=== PATIENT | male | born 1940 | race Two or more races ===

== ENCOUNTER → 2024-12-13 | Outpatient (CLI) | payer MEDICARE, MEDICAID, SELFPAY ==
--- NOTE | 2024-12-13 10:32 | XR_ITS ---
Exam: elbow bilateral, 6 views Technique: Elbow AP, oblique lateral each elbow total 6 views Exam date and time: December 13, 2024 1112 hours INDICATIONS: Patient fell last month with injury to both elbows, bilateral elbow pain. FINDINGS: Significant bilateral elbow osteoarthritis No acute fracture involving either elbow Large posterior bony olecranon spur is bilaterally IMPRESSION: Significant osteoarthritis No acute fracture.
--- NOTE | 2024-12-13 10:32 | XR_ITS ---
Examination: Bilateral wrists 6 views Technique AP oblique lateral each wrist total 6 views Exam date and time: December 13, 1999 2531 hours INDICATIONS: Patient fell one month ago with injury to both wrists, bilateral wrist pain. FINDINGS: Moderate osteoarthritis radiocarpal intercarpal and carpometacarpal joints bilaterally No acute wrist fracture Soft tissue vascular calcification is noted IMPRESSION: No acute wrist fractures
--- NOTE | 2024-12-13 10:32 | XR_ITS ---
Examination: Bilateral hands, 6 views. Technique: AP, Oblique, Lateral each hand total 6 views Date and time of exam: December 13, 2024 at 1112 hours INDICATIONS: Patient fell one month ago with injury to both hands, bilateral hand pain. FINDINGS: Fingers are curved right hand Old healed fracture right fifth metacarpal Soft tissue vascular calcification Moderate right radiocarpal joint osteoarthritis No acute left hand fracture Bilateral osteoarthritis interphalangeal joints and to a lesser extent metacarpophalangeal joints Impression: No acute fracture involving either hand Osteoarthritis as above Fracture deformity right fifth metacarpal
== END | disposition home or self-care (01) ==
PROVIDERS: PCP Family Medicine; Referring Provider Nurse Practitioner Gerontology; Visit Provider Nurse Practitioner Gerontology
DX: M19.042 Primary osteoarthritis, left hand (principal); M19.041 Primary osteoarthritis, right hand; S62.306A Unspecified fracture of fifth metacarpal bone, right hand, initial encounter for closed fracture; S69.91XA Unspecified injury of right wrist, hand and finger(s), initial encounter; S69.92XA Unspecified injury of left wrist, hand and finger(s), initial encounter; W19.XXXA Unspecified fall, initial encounter; M19.022 Primary osteoarthritis, left elbow; M19.021 Primary osteoarthritis, right elbow
CPT/HCPCS: 73080; 73110; 73130

== ENCOUNTER → 2025-02-23 | Outpatient (CLI) | payer MEDICARE, MEDICAID, SELFPAY ==
--- NOTE | 2025-02-23 06:52 | EKG_ITS ---
[facility] Test Date: 2025-02-23 Pat Name: AMILCAR MADDEN Department: Room: - Gender: Male Package Handler: HERMELINDA : 1940 Requested By: Fabian Clark Order Number: [id number] Reading MD: Fabian Clark Measurements Intervals [place] Rate: 71 P: 49 OR: 170 QRS: -50 QRSD: 135 T: 41 QT: 389 QTc: 423 Interpretive Statements SINUS RHYTHM MARKED LEFT AXIS DEVIATION [QRS AXIS < -30] RIGHT BUNDLE BRANCH BLOCK [120+ ms QRS DURATION, UPRIGHT V1, 40+ ms S IN I/aVL/V4/V5/V6] No previous ECG available for comparison /[id number]/[email or web address]/[id number]
[2025-02-23 07:08] VITALS: BMI 31.1
[2025-02-23 09:21] LABS: Collection Type, Urine Clean Catch; Squamous Epithelial Cell,Urine 0 /hpf (0-5)
[2025-02-23 10:20] LABS: Basophils # (Auto) 0.1 Thou/mm3 (0.0-0.2); Basophils % (Auto) 1 % (0-2.5); Eosinophils # (Auto) 0.3 Thou/mm3 (0.0-0.5); Eosinophils % (Auto) 3 % (0-10); Hematocrit 36.4 % (41.0-53.0); Hemoglobin 12.4 g/dL (13.5-16.0); Immature Granulocytes % (Auto) 0 % (0-0); Immature Granulocytes Auto 0.04 Thou/mm3 (0.00-0.00); Lymphocytes # (Auto) 2.1 Thou/mm3 (1.0-4.8); Lymphocytes % (Auto) 21 % (10-50); Mean Corpuscular HGB Conc 34.1 g/dl (31.0-37.0); Mean Corpuscular Hemoglobin 29.4 pg (25.0-35.0); Mean Corpuscular Volume 86 fL (80-100); Monocytes # (Auto) 0.8 Thou/mm3 (0.0-0.8); Monocytes % (Auto) 8 % (0-12); Neutrophils # (Auto) 6.9 Thou/mm3 (1.8-7.7); Neutrophils % (Auto) 67 % (37-80); Nucleated Red Blood Cell % 0 /100 WBC (0); Platelet Count 229 Thou/mm3 (140-440); RDW Standard Deviation 43.4 fL (35.1-43.9); Red Blood Count 4.22 Miln/mm3 (4.50-5.90); White Blood Count 10.3 Thou/mm3 (3.8-10.6)
[2025-02-23 10:25] LABS: Alanine Aminotransferase 10 U/L (10-49); Albumin, Serum 4.5 gm/dL (3.4-4.8); Albumin/Globulin Ratio 1.5 (1.2-2.2); Alkaline Phosphatase 100 U/L (46-116); Anion Gap 10 (7-16); Aspartate Amino Transferase 14 U/L (0-34); BUN/Creatinine Ratio 14 Ratio (12-20); Bilirubin,Total 0.5 mg/dL (0.3-1.2); Blood Urea Nitrogen 14 mg/dL (9-23); Calcium 9.6 mg/dL (8.3-10.6); Calcium (Corrected) 9.6 mg/dL (8.5-10.1); Carbon Dioxide 24.8 mMol/L (20.0-31.0); Chloride 106 mMol/L (98-107); Estimated Creatinine Clearance 47.7 mL/min (>60); Glucose 121 mg/dL (74-106); Osmolality,Calculated 282 (275-295); Potassium 4.2 mMol/L (3.4-5.1); Sodium 141 mMol/L (136-145); Total Protein 7.5 gm/dL (5.7-8.2); eGFR > 60 See Note
[2025-02-23 10:27] LABS: Bilirubin,Urine Negative (Negative); Blood,Urine Negative (Negative); Clarity,Urine Clear (Clear/Hazy); Color,Urine Lt-Yellow (Lt Yel-Yel); Glucose, Urine Negative (Negative); Ketones,Urine Negative (Negative); Leukocyte Esterase,Urine Negative (Negative); Nitrite,Urine Negative (Negative); PH,Urine 5.5 (5.0-7.0); Protein,Urine Negative (Neg - Trace); RBC,Urine 2 /hpf (0-3); Specific Gravity,Urine 1.015 (1.001-1.035); Urobilinogen,Urine Negative mg/dL (0.0-1.0); WBC,Urine < 1 /hpf (0-5)
== END | disposition home or self-care (01) ==
LOC: SLAB 03-03 08:35
PROVIDERS: Anesthesiology; PCP Family Medicine; Referring Provider Surgery; Visit Provider Surgery
DX: N40.1 Benign prostatic hyperplasia with lower urinary tract symptoms (principal); R97.20 Elevated prostate specific antigen [PSA]
CPT/HCPCS: 36415; 80053; 81001; 85025; 93005

== ENCOUNTER 2025-04-27 06:40 | Day surgery (SDC) | payer MEDICARE, MEDICAID, SELFPAY ==
[2025-04-27] VITALS (10 sets, daily range): BP systolic 143–180; BP diastolic 76–95; PULSE 80–86; RESP 12–26; TEMP 37–38.2; O2SAT 94–99; BMI 27.6
[2025-04-27] MEDS: SODIUM CHLORIDE 0.9% 500 ML 500 ML 100 ML IV (08:13)
[2025-04-27] MEDS: MIDAZOLAM INJ 1 MG/ML VIAL 2 ML (ASD USE ONLY) 2 MG IVP (08:13)
[2025-04-27] MEDS: DiphenhydrAMINE INJ 50 MG/ML VIAL 25 MG IVP (08:13)
[2025-04-27] MEDS: fentaNYL CIT INJ 50 mCg/ML AMP 2ML (ASD USE ONLY) IVP (08:13)
== END 2025-04-27 09:20 | disposition home or self-care (01) ==
PROVIDERS: PCP Family Medicine; Referring Provider Surgery; Visit Provider Surgery
PROC: 0DBE8ZX Excision of Large Intestine, Via Natural or Artificial Opening Endoscopic, Diagnostic (ICD-10-PCS; CPT 45380; principal; 2025-04-27 08:00)
DX: K62.89 Other specified diseases of anus and rectum (principal); D50.9 Iron deficiency anemia, unspecified; K64.1 Second degree hemorrhoids; K57.30 Diverticulosis of large intestine without perforation or abscess without bleeding
CPT/HCPCS: 45378; J1200; J2250; J3010; J7040